=== PATIENT | female | born 1950 | race Caucasian/White ===

== ENCOUNTER 2024-04-14 12:59 | Emergency (ER) | payer MEDICARE ==
[~2024-04-14] VITALS: Ht 162.6 cm; Wt 94.5 kg
[2024-04-14] MEDS ORDERED: PARO5TAB PO (13:07)
[2024-04-14] MEDS ORDERED: SELE5TAB4 PO (13:07)
[2024-04-14] MEDS ORDERED: LISI10TA22 PO (13:07)
[2024-04-14] MEDS ORDERED: CRES40TA PO (13:07)
[2024-04-14] MEDS ORDERED: LEVO50TA5 PO (13:07)
[2024-04-14] MEDS ORDERED: LOPR1TAB6 PO (13:07)
[2024-04-14] MEDS ORDERED: NIRM1TAB13 PO (15:03)
[2024-04-14 15:14] VITALS: BP 148/71; TEMP 97.7; O2SAT 99
== END 2024-04-14 15:22 | disposition home or self-care (01) ==
LOC: M ED 12:59
DX: U07.1 COVID-19 (principal); I10 Essential (primary) hypertension; E78.5 Hyperlipidemia, unspecified; F32.A Depression, unspecified; F41.9 Anxiety disorder, unspecified; G20.A1 Parkinson's disease without dyskinesia, without mention of fluctuations; Z79.811 Long term (current) use of aromatase inhibitors; Z79.899 Other long term (current) drug therapy